=== PATIENT | female | born 1970 | race Caucasian/White ===

== ENCOUNTER 2023-12-07 13:10 | Emergency (ER) | payer OTHER ==
[~2023-12-07] VITALS: Ht 170.2 cm; Wt 68.9 kg
[2023-12-07 13:34] VITALS: BP_SYST 138; PULSE 75; RESP 16; TEMP 98; O2SAT 97
[2023-12-07] MEDS ORDERED: ACET-2634 PO (14:29)
[2023-12-07 15:55] VITALS: BP_SYST 138; PULSE 75; RESP 16; TEMP 98; O2SAT 97
== END 2023-12-07 16:09 | disposition home or self-care (01) ==
LOC: SED 13:10
DX: M17.0 Bilateral primary osteoarthritis of knee (principal); Z88.1 Allergy status to other antibiotic agents; Z79.899 Other long term (current) drug therapy
CPT/HCPCS: 99283